=== PATIENT | female | born 1955 | race Caucasian/White ===

== ENCOUNTER → 2020-07-30 | Day surgery (SDC) | payer BC, MEDICARE ==
[~2020-07-30] MED LIST: Adenosine 6 MG/2 ML VIAL ONE; Aspirin 325 MG TAB ONE; Clopidogrel Bisulfate 300 MG TAB ONE; Fentanyl 100 MCG/2 ML VIAL ONE; HYDROcodone/Acetaminophen 5/325 mg Tablet ONE; Heparin 10,000 UNITS/ 10 ML VIAL ONE; Lidocaine 1% (PF) 30 ML VIAL ONE; Midazolam HCl 2 mg/2 ml Vial ONE; Nitroglycerin 50 MG/250 ML BOT 0 ML ONE; Ondansetron PF 4 MG/2 ML Vial ONE; Protamine Sulfate 50 MG/5 ML VIAL ONE
[2020-07-30 08:39] LABS: Hemoglobin 8.5 g/dL (12.0-15.5); Mean Corpuscular Hemoglobin 18.3 pg (27.0-33.0); Mean Corpuscular Volume 65.4 fl (81.6-98.3); Mean Platelet Volume 8.2 fl (7.4-10.4); Platelet Count 417 10x3/uL (150-450); RBC Distribution Width 25.4 % (11.5-14.5); Red Blood Cell (RBC) Count 4.65 10x6/uL (3.90-5.03); White Blood Cell (WBC) Count 7.2 10x3/uL (3.5-10.5)
[2020-07-30 08:46] LABS: Anion Gap 18 mmol/L (10-20); BUN (Urea Nitrogen) 16 mg/dL (9.8-20.1); Calc. Creatinine Clearance 0 mL/min (70-130); Calcium 9.7 mg/dL (7.8-10.44); Carbon Dioxide 24 mmol/L (23-31); Chloride 104 mmol/L (98-107); Glucose 149 mg/dL (80-115); Sodium 142 mmol/L (136-145)
[2020-07-30 08:49] LABS: INR-International Normal Ratio 0.9; PTT 21.9 sec (22.0-33.0); Prothrombin Time 10.5 sec (9.5-12.1)
[2020-07-30 09:02] LABS: Anisocytosis MODERATE=16-30 cells (100X) (0-5/hpf); Microcytosis MODERATE=15-30 cells (100X) (0-5/hpf); Platelet Morphology Comment Appears Adequate
[2020-07-30 09:03] LABS: Elliptocytes SLIGHT = 2-5 cells (100X) (0-1/hpf); Hypochromia MODERATE=16-30 cells (100X) (0-5/hpf); Macrocytosis SLIGHT = 6-15 cells (100X) (0-5/hpf); Polychromasia SLIGHT = 2-3 cells (100X) (0-2/hpf); Target Cells SLIGHT = 2-5 cells (100X) (0-1/hpf)
[2020-07-30 09:04] LABS: #Eosinphils 0.2 10x3/uL (0.0-0.5); #Monocytes 0.6 10x3/uL (0.0-1.1); #Neutrophils 4.8 10x3/uL (1.5-8.4); %Basophils 0.6 % (0.0-2.0); %Eosinophils 3.3 % (0.0-6.0); %Lymphocytes 20.1 % (18.0-47.0); %Monocytes 8.8 % (0.0-10.0); %Neutrophils 66.6 % (40.0-75.0)
== END ==
LOC: CSHCCL 07:19
PROVIDERS: ATTEND Specialist
DX: T82.855A Stenosis of coronary artery stent, initial encounter (principal); I25.10 Atherosclerotic heart disease of native coronary artery without angina pectoris; I73.9 Peripheral vascular disease, unspecified
CPT/HCPCS: 80048; 85025; 85347; 85610; 85730; 92928; 92978; 93005; 93010; 93458; 99152; 99153; C1753; C1760; C1784; C1887; C9600; J0153; J1644; J2001; J2250; J2405; J2720; J3010

== ENCOUNTER 2021-03-22 08:50 | Observation (INO) | payer BC, MEDICARE ==
[2021-03-22 09:56] VITALS: BP 165/70
[2021-03-22] MEDS ORDERED: Aspirin 325 MG TAB ONE (10:05)
[2021-03-22] MEDS ORDERED: Ascorbic Acid 500 mg Chewable Tablet ONE (10:05)
[2021-03-22] MEDS ORDERED: Lidocaine 1% (PF) 30 ML VIAL ONE (10:14)
[2021-03-22] MEDS ORDERED: Nitroglycerin 50 MG/250 ML BOT 0 ML ONE (10:14)
[2021-03-22] MEDS ORDERED: Adenosine 6 MG/2 ML VIAL ONE (10:14)
[2021-03-22] MEDS ORDERED: Heparin 10,000 UNITS/ 10 ML VIAL ONE (10:14)
[2021-03-22] MEDS ORDERED: FLU VACC QS2021-22(65YR UP)/PF 240 MCG/0.7 ML SYRINGE IM ONE (10:30)
[2021-03-22] MEDS ORDERED: Midazolam HCl 2 mg/2 ml Vial ONE ×2 (11:52→12:23)
[2021-03-22] MEDS ORDERED: Fentanyl 100 MCG/2 ML VIAL ONE (11:52)
[2021-03-22] MEDS ORDERED: Acetaminophen 500 MG TAB ONE ×2 (15:02→15:08)
[2021-03-22] MEDS ORDERED: Morphine 4 MG/ML VIAL ONE (15:34)
[2021-03-22] MEDS ORDERED: Sodium Chloride 0.9% 1,000 ML IV SCH (16:05)
[2021-03-22 17:15] VITALS: TEMP 97.7
[2021-03-22] MEDS ORDERED: Nitroglycerin 0.4 MG TAB (25 Tab Bottle) SL PRN (17:56)
[2021-03-22] MEDS ORDERED: Ondansetron PF 4 MG/2 ML Vial SLOW IVP PRN (17:57)
[2021-03-22] MEDS ORDERED: diphenhydrAMINE 25 MG CAP PO PRN (17:58)
[2021-03-22] MEDS ORDERED: Mag-Al 1200 mg/1200 mg/30 ML UDCUP PO PRN (17:58)
[2021-03-22] MEDS ORDERED: Benzonatate 100 MG CAP PO PRN (17:59)
[2021-03-22] MEDS ORDERED: Guaifenesin DM 100-10/5 ML UDCUP PO PRN (17:59)
[2021-03-22] MEDS ORDERED: Morphine 4 MG/ML VIAL SLOW IVP SCH (18:00)
[2021-03-22] MEDS ORDERED: cloNIDine 0.1 MG TAB PO PRN (18:00)
== END 2021-03-22 19:50 | disposition home or self-care (01) ==
LOC: CSHCCL 08:50 → CSHICU 16:00
PROVIDERS: ADMIT Specialist; ATTEND Specialist
DX: E11.51 Type 2 diabetes mellitus with diabetic peripheral angiopathy without gangrene (principal); I70.213 Atherosclerosis of native arteries of extremities with intermittent claudication, bilateral legs; Z95.820 Peripheral vascular angioplasty status with implants and grafts; I10 Essential (primary) hypertension; E78.2 Mixed hyperlipidemia; Z87.891 Personal history of nicotine dependence; I25.118 Atherosclerotic heart disease of native coronary artery with other forms of angina pectoris; Z79.899 Other long term (current) drug therapy; Z79.82 Long term (current) use of aspirin; Z79.84 Long term (current) use of oral hypoglycemic drugs
CPT/HCPCS: 75710; 99152; 99153; C1760; J0153; J1644; J2001; J2250; J2270; J3010; J7050

== ENCOUNTER → 2021-05-20 | Day surgery (SDC) | payer BC ==
[~2021-05-20] MED LIST changes: +Acetaminophen/Codeine 30-300mg Tablet ONE; +Ascorbic Acid 500 mg Chewable Tablet ONE; -Clopidogrel Bisulfate 300 MG TAB ONE; -HYDROcodone/Acetaminophen 5/325 mg Tablet ONE; -Midazolam HCl 2 mg/2 ml Vial ONE; +Midazolam HCl 5 mg/5 ml Vial ONE; -Ondansetron PF 4 MG/2 ML Vial ONE; -Protamine Sulfate 50 MG/5 ML VIAL ONE; +Sodium Chloride 0.9% 1,000 ML ONE
[2021-05-20 18:00] VITALS: TEMP 98.4
== END ==
LOC: CSHSDC 08:07
PROVIDERS: ATTEND Specialist
DX: I70.223 Atherosclerosis of native arteries of extremities with rest pain, bilateral legs (principal); I70.1 Atherosclerosis of renal artery; E11.9 Type 2 diabetes mellitus without complications; E78.5 Hyperlipidemia, unspecified; I11.0 Hypertensive heart disease with heart failure; I50.32 Chronic diastolic (congestive) heart failure; Z87.891 Personal history of nicotine dependence; Z79.899 Other long term (current) drug therapy; Z79.84 Long term (current) use of oral hypoglycemic drugs; Z79.82 Long term (current) use of aspirin
CPT/HCPCS: 36140; 36245; 75625; 75716; 99152; 99153; C1760; J0153; J1644; J2001; J2250; J3010; J7050

== ENCOUNTER 2022-11-03 12:17 | Outpatient (CLI) | payer MEDICARE | END 2022-11-03 12:18 | disposition home or self-care (01) | LOC: CSHCT 12:17 | PROVIDERS: ATTEND Thoracic Surgery (Cardiothoracic Vascular Surgery) | DX: I70.221 Atherosclerosis of native arteries of extremities with rest pain, right leg (principal); I70.213 Atherosclerosis of native arteries of extremities with intermittent claudication, bilateral legs; R59.0 Localized enlarged lymph nodes; Z95.828 Presence of other vascular implants and grafts; I77.1 Stricture of artery; T82.7XXA Infection and inflammatory reaction due to other cardiac and vascular devices, implants and grafts, initial encounter; I70.8 Atherosclerosis of other arteries; I70.292 Other atherosclerosis of native arteries of extremities, left leg; R60.0 Localized edema | CPT/HCPCS: 75635 ==